=== PATIENT | female | born 1995 | race Caucasian/White ===

== ENCOUNTER 2022-01-18 07:51 | Inpatient (IN) ==
[2022-01-18] MEDS ORDERED: Metoclopramide 10 MG/2 ML VIAL IVP PRN (08:03)
[2022-01-18] MEDS ORDERED: Ondansetron 4 MG/2 ML VIAL IVP PRN ×2 (08:03→11:10)
[2022-01-18] MEDS ORDERED: Famotidine 20 MG/2 ML VIAL IVP PRN (08:03)
[2022-01-18] MEDS ORDERED: Naloxone 0.4 MG/ML INJ IVP PRN ×2 (08:03→11:10)
[2022-01-18] MEDS ORDERED: miSOPROStoL 25 MCG TABLET PO STA (08:10)
[2022-01-18 08:45] LABS: Basophils % 0.3 %; Eosinophils # 0.1 K/mcL (0.0-0.6); Hematocrit 38.5 % (35.3-44.9); Hemoglobin 12.9 g/dL (11.5-15.4); Immature Granulocytes % 1.5 % (0-4); Lymphocytes # 2.1 K/mcL (0.6-4.6); Lymphocytes % 18.1 %; Mean Corpuscular HGB Conc 33.5 g/dL (31.6-35.5); Mean Corpuscular Hemoglobin 31.3 pg (28.0-33.3); Mean Corpuscular Volume 93.4 fL (83.0-100.0); Mean Platelet Volume 10.8 fL (9.4-12.4); Monocytes # 1.2 K/mcL (0.0-1.3); Neutrophils # 7.9 K/mcL (1.6-8.9); Platelet Count 236 K/mcL (140-400); Red Blood Count 4.12 M/mcL (3.82-4.97); Red Cell Distribution Width 12.6 % (11.5-14.5); Segmented Neutrophils % 69.1 %; White Blood Count 11.5 K/mcL (4.3-11.1)
[2022-01-18 10:51] LABS: Amphetamine Screen,Urine Negative ng/mL (Cutoff=1000); Barbiturate Screen,Urine Negative ng/mL (Cutoff=200); Benzodiazepines Screen,Urine Negative ng/mL (Cutoff=200); Cannabinoid Screen,Urine Negative ng/mL (Cutoff = 50); Cocaine Screen,Urine Negative ng/mL (Cutoff= 300); Opiate Screen,Urine Negative ng/mL (Cutoff=300); Phencyclidine Screen,Urine Negative ng/mL (Cutoff=25)
[2022-01-18] MEDS ORDERED: EPHEDrine 50 MG/ML VIAL IVP PRN (11:10)
[2022-01-18] MEDS ORDERED: Oxytocin 20 units/ LR 1000 mL 20 UNIT/1,000 ML BAG IVC SCH (13:30)
[2022-01-18] MEDS: *HR* Nalbuphine 10 MG/ML AMPUL IV PRN (15:30)
[2022-01-19] MEDS ORDERED: miSOPROStoL 25 MCG TABLET PO STA (00:07)
[2022-01-19] MEDS: *HR* Nalbuphine 10 MG/ML AMPUL IV PRN (00:38)
[2022-01-19] MEDS: Ringers Solution, Lactated 1,000 ML IVC SCH ×2 (04:37→10:26)
[2022-01-19] MEDS ORDERED: *HR* FentaNYL (PF) 100 MCG/2 ML VIAL ONE (10:02)
[2022-01-19] MEDS ORDERED: Ropivacaine/PF 0.2% 20 ML VIAL ONE ×2 (10:02→22:08)
[2022-01-19] MEDS: Epidural Premix (fent/bupiv) 110 ML EP SCH ×3 (10:27→23:29)
[2022-01-19] MEDS ORDERED: Gentamicin 150 MG in 0.9 % Sodium Chloride 100 ML IVPB ONE (21:08)
[2022-01-19] MEDS: Ampicillin 2,000 MG in 0.9 % Sodium Chloride Mini Bag 100 ML IVPB SCH (21:31)
[2022-01-19 22:45] LABS: Basophils % 0.2 %; Eosinophils % 0.2 %; Hematocrit 36.9 % (35.3-44.9); Hemoglobin 12.5 g/dL (11.5-15.4); Immature Granulocytes % 0.9 % (0-4); Lymphocytes # 1.4 K/mcL (0.6-4.6); Lymphocytes % 7.8 %; Mean Corpuscular HGB Conc 33.9 g/dL (31.6-35.5); Mean Corpuscular Hemoglobin 31.4 pg (28.0-33.3); Mean Corpuscular Volume 92.7 fL (83.0-100.0); Mean Platelet Volume 10.9 fL (9.4-12.4); Monocytes # 1.6 K/mcL (0.0-1.3); Monocytes % 8.5 %; Neutrophils # 15.1 K/mcL (1.6-8.9); Platelet Count 204 K/mcL (140-400); Red Blood Count 3.98 M/mcL (3.82-4.97); Red Cell Distribution Width 12.4 % (11.5-14.5); Segmented Neutrophils % 82.4 %
[2022-01-19 22:46] LABS: White Blood Count 18.3 K/mcL (4.3-11.1)
[2022-01-20] MEDS ORDERED: Ibuprofen 600 MG TABLET PO ONE (01:22)
[2022-01-20] MEDS: Ampicillin 2,000 MG in 0.9 % Sodium Chloride Mini Bag 100 ML IVPB SCH ×3 (02:58→20:08)
[2022-01-20] MEDS ORDERED: Oxytocin 20 units/ LR 1000 mL 20 UNIT/1,000 ML BAG IVC SCH (04:01)
[2022-01-20] MEDS ORDERED: Lanolin 7 G OINT...G. TP PRN (04:01)
[2022-01-20] MEDS ORDERED: Ondansetron ODT 4 MG TAB.RAPDIS SL PRN (04:01)
[2022-01-20] MEDS ORDERED: *HR* OxyCODONE Immed Rel 5 MG TABLET PO PRN (04:01)
[2022-01-20] MEDS: Gentamicin 110 MG in 0.9 % Sodium Chloride 100 ML IVPB SCH ×3 (05:28→21:09)
[2022-01-20] MEDS: Ibuprofen 600 MG TABLET PO SCH ×3 (08:00→21:08)
[2022-01-20] MEDS: Benzocaine/Menthol 56 GM AEROSOL SPRAY TP PRN (08:00)
[2022-01-20] MEDS: Acetaminophen 325 MG TABLET PO SCH ×3 (08:00→21:08)
[2022-01-20] MEDS ORDERED: Prenatal Vit/FA 1 EACH TABLET PO SCH (09:00)
[2022-01-21] MEDS: Acetaminophen 325 MG TABLET PO SCH ×2 (03:49→10:39)
[2022-01-21] MEDS: Ibuprofen 600 MG TABLET PO SCH ×2 (03:49→10:39)
[2022-01-21] MEDS ORDERED: Preparation H Ointment 57 GM TUBE RC PRN (04:08)
[2022-01-21] MEDS: Ampicillin 2,000 MG in 0.9 % Sodium Chloride Mini Bag 100 ML IVPB SCH (06:09)
[2022-01-21 06:51] LABS: BUN/Creatinine Ratio 15 (6-26); Blood Urea Nitrogen 7 mg/dL (6-20); eGFR For African Americans > 60 (> 60); eGFR For Non-African Americans > 60 (> 60)
[2022-01-21 08:08] VITALS: BP 119/79; PULSE 80; TEMP 97.8; O2SAT 98
[2022-01-21] MEDS: Benzocaine/Menthol 56 GM AEROSOL SPRAY TP PRN (08:45)
[2022-01-21] MEDS ORDERED: Gentamicin 240 MG in 0.9 % Sodium Chloride 100 ML IVPB SCH (16:00)
== END 2022-01-21 11:27 | disposition home or self-care (01) | DRG 768 ==
LOC: 1NENULAB 07:51 → 1NENUOBS 01-20 03:51
PROVIDERS: ADMIT Registered Nurse; ATTEND Registered Nurse